=== PATIENT | male | born 2005 | race Caucasian/White ===

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

== ENCOUNTER 2023-07-27 10:47 | Outpatient (CLI) | payer BC, SELFPAY ==
[2023-07-27 11:40] LABS: Influenza Control Valid (Valid)
[2023-07-27 12:13] LABS: RSV RNA, RT-PCR Negative (Negative)
== END 2023-07-27 10:48 | disposition home or self-care (01) ==
LOC: CHSLAB 10:49
PROVIDERS: PCP Emergency Medicine; Visit Provider Emergency Medicine
DX: R05.3 Chronic cough (principal)
CPT/HCPCS: 87634; 87804